=== PATIENT | male | born 1990 | race Caucasian/White ===

== ENCOUNTER 2017-03-08 18:35 | Emergency (ER) | payer OTHER ==
[2017-03-08 18:39] VITALS: Ht 200.7 cm
--- NOTE | 2017-03-08 19:08 | EMERGENCY ROOM VISIT NOTE ---
History Report prepared by Juliano: Wilmer Arita Under the Supervision of: Dr. Tatyana Coyle D.O. First contact with patient: 18:46 Chief Complaint: FEVER Stated Complaint: FEVER,SWEATING, RED AROUND LWR LEG History of Present Illness The patient is a 26 year old male who presents to the Emergency Room with complaints of intermittent fever like symptoms that began yesterday. He rates his discomfort as a 4/10 in severity. The patient states that he started to experience dizziness when he went to take a shower yesterday. He states that he started to experience chills, shivering, and a near syncopal episode. The patient states that following his shower, he was shivering for 3 hours in all of his extremities. He reports that he went to sit on the couch and relax and was able to return to baseline. He states that he woke up in the middle of the night due to his chills returning, but took a shower and was able to go back to bed. The patient states that he went to take a shower this morning and felt a cold sensation on his lower left extremity. He states that he noticed erythema to his lower left extremity region. The patient states that he relaxed all day, but admits that he was still experiencing chills, diaphoresis, and erythema and pain to his lower left extremity. He states that he visited [facility] when they sent him to the ED. The patient admits to a history of MRSA in his heels, IBS, obesity, and borderline thyroid problems. He admits that he has a family history of lupus and diabetes, but denies any personal immune disorders or diabetes. The patient denies bug bites, any other redness, diabetes history, and immune disease. No recent trauma to LE. Source of History: patient Onset: yesterday Position: other (global) Symptom Intensity: 4/10 Timing: intermittent Associated Symptoms: + chills, + diaphoresis Review of Systems See HPI for pertinent positives & negatives. A total of 10 systems reviewed and were otherwise negative. Past Medical & Surgical Medical Problems: (1) Borderline abnormal thyroid function test (2) IBS (irritable bowel syndrome) (3) MRSA (methicillin resistant staph aureus) culture positive (4) Obesity Family History Diabetes mellitus FH: lupus Social History Smoking Status: Never Smoker Current/Historical Medications Scheduled Doxycycline Monohydrate (Monodox), 100 MG PO BID Allergies Uncoded Allergies: SULFA/BACTRIM (Allergy, Intermediate, hyper/ blisters, 03/08/17) Physical Exam Vital Signs Date Time Temp Pulse Resp B/P (MAP) Pulse Ox O2 Delivery O2 Flow Rate FiO2 03/08/17 21:32 36.9 110 20 151/99 96 03/08/17 21:00 151/99 03/08/17 20:58 110 151/103 96 Room Air 03/08/17 18:39 36.9 103 20 166/98 97 Room Air Physical Exam GENERAL: Obese, alert, well appearing, well nourished, no distress, non-toxic EYE EXAM: normal conjunctiva, PERRL and EOM's grossly intact OROPHARYNX: no exudate, no erythema, lips, buccal mucosa, and tongue normal and mucous membranes are moist NECK: supple, no nuchal rigidity, no adenopathy, non-tender LUNGS: Clear to auscultation. Normal chest wall mechanics HEART: no murmurs, S1 normal and S2 normal ABDOMEN: abdomen soft, non-tender, normo-active bowel sounds, no masses, no rebound or guarding. BACK: Back is symmetrical on inspection and there is no deformity, no midline tenderness, no CVA tenderness. SKIN: no rashes and no bruising UPPER EXTREMITIES: upper extremities are grossly normal. LOWER EXTREMITIES: No pitting edema. Distal left lower extremity erythema, no increased warmth, ecchymosis, trauma, or insect bite. NEURO EXAM: Normal sensorium, cranial nerves II-XII grossly intact, normal speech, no gross weakness of arms, no gross weakness of legs. No drift. Finger to nose intact. Gross sensation intact. Medical Decision & Procedures ER Provider Diagnostic Interpretation: Radiology results have been interpreted by the radiologist and reviewed by me. LEFT VENOUS DOPP LOWER EXT UNILAT CLINICAL HISTORY: erythema/edema pain. Edema. TECHNIQUE: Venous Doppler COMPARISON STUDY: None FINDINGS: Normal study IMPRESSION: Normal study The above report was generated using voice recognition software. It may contain grammatical, syntax or spelling errors. Electronically signed by: Spencer Piper M.D. 03/08/2017 8:29 PM Dictated Date/Time: 03/08/2017 8:29 PM Laboratory Results 03/08/17 19:44 Red Blood Count 5.25, Mean Corpuscular Volume 89.7, Mean Corpuscular Hemoglobin 31.8, Mean Corpuscular Hemoglobin Concent 35.5, Mean Platelet Volume 10.4, Neutrophils (%) (Auto) 72.0, Lymphocytes (%) (Auto) 17.9, Monocytes (%) (Auto) 8.8, Eosinophils (%) (Auto) 0.8, Basophils (%) (Auto) 0.3, Neutrophils # (Auto) 7.37, Lymphocytes # (Auto) 1.83, Monocytes # (Auto) 0.90, Eosinophils # (Auto) 0.08, Basophils # (Auto) 0.03 03/08/17 19:44 Test 03/08/17 19:44 White Blood Count 10.23 K/uL (4.8-10.8) Red Blood Count 5.25 M/uL (4.7-6.1) Hemoglobin 16.7 g/dL (14.0-18.0) Hematocrit 47.1 % (42-52) Mean Corpuscular Volume 89.7 fL (80-100) Mean Corpuscular Hemoglobin 31.8 pg (25-34) Mean Corpuscular Hemoglobin Concent 35.5 g/dl (32-36) Platelet Count 195 K/uL (130-400) Mean Platelet Volume 10.4 fL (7.4-10.4) Neutrophils (%) (Auto) 72.0 % Lymphocytes (%) (Auto) 17.9 % Monocytes (%) (Auto) 8.8 % Eosinophils (%) (Auto) 0.8 % Basophils (%) (Auto) 0.3 % Neutrophils # (Auto) 7.37 K/uL (1.4-6.5) Lymphocytes # (Auto) 1.83 K/uL (1.2-3.4) Monocytes # (Auto) 0.90 K/uL (0.11-0.59) Eosinophils # (Auto) 0.08 K/uL (0-0.5) Basophils # (Auto) 0.03 K/uL (0-0.2) RDW Standard Deviation 40.6 fL (36.4-46.3) RDW Coefficient of Variation 12.4 % (11.5-14.5) Immature Granulocyte % (Auto) 0.2 % Immature Granulocyte # (Auto) 0.02 K/uL (0.00-0.02) Anion Gap 5.0 mmol/L (3-11) Estimated GFR () 96.8 Estimated GFR (Non- 83.5 BUN/Creatinine Ratio 10.1 (10-20) Calcium Level 8.9 mg/dl (8.5-10.1) Laboratory results per my review. Medications Administered Medications (Trade) Dose Ordered Sig/Estuardo Route Start Time Stop Time Status Last Admin Dose Admin Cephalexin Monohydrate (Keflex Cap) 500 mg NOW ONCE PO 03/08/17 20:45 03/08/17 20:46 DC 03/08/17 21:01 500 MG Doxycycline Hyclate (Vibramycin Cap) 100 mg ONE ONCE PO 03/08/17 21:15 03/08/17 21:16 DC 03/08/17 21:15 100 MG ED Course 1854: The patient was evaluated in room B08. A complete history and physical exam was performed. 2031: Trimethoprim/ Sulfamethoxazole 1 tab PO. 2044: Keflex Cap 500 mg PO. 2102: Upon reevaluation, the patient is feeling better. I discussed the findings and the treatment plan with the patient. He verbalizes agreement and understanding. The patient was discharged home. 2114: Vibramycin Cap 100 mg PO. Medical Decision The differential diagnosis includes but is not limited to: Etiologies such as cellulitis, abscess, MRSA infection, DVT, necrotizing fasciitis, dermatitis, drug eruption, as well as others were entertained. Pt aware of all results, likely cellulitis, doppler negative. When given antibiotics in ED, states then that has sulfa allergy so changed to doxycycline. Cultures sent as a precaution given systemic symptoms, no evidence of bacteremia/sepsis on Ed evaluation. Pt with hx of MRSA. Discussed with him close f/u, states he has no PCP and so advised to return to the ED for recheck within 48 hours. Discussed sx to watch/return for more emergently. He verbalized understanding of this and was agreeable with plan. Medication Reconcilliation Current Medication List: was personally reviewed by me Blood Pressure Screening Patient's blood pressure: Elevated blood pressure Blood pressure disposition: Referred to PCP Impression Primary Impression: Cellulitis Scribe Attestation The scribe's documentation has been prepared under my direction and personally reviewed by me in its entirety. I confirm that the note above accurately reflects all work, treatment, procedures, and medical decision making performed by me. Departure Information Dispostion Home / Self-Care Prescriptions Doxycycline Monohydrate (Monodox) 100 Mg Cap 100 MG PO BID for 7 Days, #14 CAP Prov: Mary Bethraphael Tatyana S., 03/08/17 Forms HOME CARE DOCUMENTATION FORM, IMPORTANT VISIT INFORMATION Patient Instructions My [facility] Additional Instructions Please take the antibiotics as prescribed. Please return here for a recheck Saturday. If you are feeling worse, develop increased redness/warmth/ swelling of the lower leg, develop blisters/oozing, fevers/chills, vomiting, dizziness, or you have any other new or concerning symptoms, please return to the emergency room. Problem Qualifiers Primary Impression: Cellulitis Site of cellulitis: extremity Site of cellulitis of extremity: lower extremity Laterality: left Qualified Codes: L03.116 - Cellulitis of left lower limb
[2017-03-08 20:13] LABS: BASO % 0.3 %; BASO ABS # 0.03 K/uL (0-0.2); COMPLETE YES; EOS % 0.8 %; HEMATOCRIT 47.1 % (42-52); IG% 0.2 %; LYMPH % 17.9 %; LYMPH ABS # 1.83 K/uL (1.2-3.4); MEAN CELL VOLUME 89.7 fL (80-100); MEAN CORPUSCULAR HEMOGLOBIN 31.8 pg (25-34); MEAN CORPUSCULAR HGB CONC 35.5 g/dl (32-36); MEAN PLATELET VOLUME 10.4 fL (7.4-10.4); MONO % 8.8 %; PLATELET COUNT 195 K/uL (130-400); RED BLOOD COUNT 5.25 M/uL (4.7-6.1); WHITE BLOOD COUNT 10.23 K/uL (4.8-10.8)
--- NOTE | 2017-03-08 20:30 | DIAGNOSTIC IMAGING REPORT ---
LEFT VENOUS DOPP LOWER EXT UNILAT CLINICAL HISTORY: erythema/edema pain. Edema. TECHNIQUE: Venous Doppler COMPARISON STUDY: None FINDINGS: Normal study IMPRESSION: Normal study The above report was generated using voice recognition software. It may contain grammatical, syntax or spelling errors. Electronically signed by: Spencer Piper M.D. 03/08/2017 8:29 PM Dictated Date/Time: 03/08/2017 8:29 PM
[2017-03-08] MEDS: SULFAMETHOXAZOLE/TRIMETHOPRIM DS 800/160MG TAB PO STA ×2 (20:32→21:00)
[2017-03-08 20:35] LABS: BLOOD UREA NITROGEN 12 mg/dl (7-18); BUN/CREATININE RATIO 10.1 (10-20); CALCIUM 8.9 mg/dl (8.5-10.1); CARBON DIOXIDE 24 mmol/L (21-32); CHLORIDE 108 mmol/L (98-107); GLUCOSE 87 mg/dl (70-99); POTASSIUM 3.9 mmol/L (3.5-5.1); SODIUM 137 mmol/L (136-145)
[2017-03-08] MEDS ORDERED: CEPHALEXIN MONOHYDRATE 250 MG CAP PO ONE (20:45)
[2017-03-08] MEDS ORDERED: DOXY100C76 PO (21:11)
[2017-03-08] MEDS ORDERED: DOXYCYCLINE HYCLATE 100 MG CAP PO ONE (21:15)
[2017-03-08 21:32] VITALS: BP 151/99; PULSE 110; TEMP 36.9; O2SAT 96
== END 2017-03-08 21:33 | disposition home or self-care (01) ==
LOC: C.EDB 18:40
DX: L03.116 Cellulitis of left lower limb (principal); K58.9 Irritable bowel syndrome, unspecified; Z86.14 Personal history of Methicillin resistant Staphylococcus aureus infection; E66.9 Obesity, unspecified; E07.9 Disorder of thyroid, unspecified; Z83.3 Family history of diabetes mellitus

== ENCOUNTER 2017-03-11 14:04 | Emergency (ER) | payer OTHER ==
[~2017-03-11 14:04] MED LIST: DOXY100C76 PO
[2017-03-11 14:22] VITALS: TEMP 36.7; Ht 200.7 cm
--- NOTE | 2017-03-11 14:52 | EMERGENCY ROOM VISIT NOTE ---
ED Visit Note First contact with patient: 14:37 CHIEF COMPLAINT: Recheck left lower extremity cellulitis History of present illness: Patient is a 26-year-old white male who returns to the emergency department as advised for recheck of a cellulitis involving the left lower leg. He was seen and evaluated here 3 days ago. He has negative venous Doppler of the left lower extremity at that time. He was placed on doxycycline. He has been taking the doxycycline as prescribed. He reports his symptoms have much improved. The affected area is much smaller, less warm and less red. He has not had a fever in greater than 24 hours. He reports less pain. He notes some persistent swelling in the dorsum of the foot. Generally he feels much better than he did a couple of days ago. He feels a little bit nauseous but attributes this to the antibiotic. REVIEW OF SYSTEMS: Review of systems as per HPI. All other systems reviewed were negative. At least 6 systems reviewed. PMH: Electronic medical records are reviewed and summarized as above/below. See Problem List. SOCIAL HISTORY: Patient lives at home. Nonsmoker. PHYSICAL EXAM: Vital Signs: Reviewed Nurse's notes. MENTAL STATUS: Morbidly obese 26-year-old white male who is awake and alert and seated on the gurney in no acute distress. INTEGUMENTARY: Examination of the anterior left lower leg show a small area of erythema, increased warmth and induration over the medial malleolus. There is no lymphangitic streaking. No fluctuance or pointing. There is 2+ pitting edema in the dorsum of the foot. Knee and ankle range of motion are full. The left lower extremity is neurovascularly intact. The redness is decreased compared to yesterday according to the patient. EMERGENCY DEPARTMENT COURSE: The patient was seen and assessed as above. His old records are reviewed. Clinically the patient appears to be responding appropriately to the doxycycline. He has some faint residual erythema and pitting edema which is to be expected, given the infection in addition to his body habitus. He was encouraged to elevate the leg as much as possible for swelling, and was reassured that his symptoms would continue until improve as he finishes his antibiotics. He reports he does not have a PCP, therefore if his symptoms worsen, he was advised to return to the emergency department immediately. Medication reconciliation: I attest that I have personally reviewed the patient' s current medication list. Blood pressure screening : Patient was found to have normal blood pressure on screening and does not require follow-up. Problem List Medical Problems: (1) Asthma Status: Chronic (2) Borderline abnormal thyroid function test Status: Chronic (3) Cellulitis Status: Resolved (4) Depression Status: Chronic (5) Hypertension Status: Chronic (6) IBS (irritable bowel syndrome) Status: Chronic (7) MRSA (methicillin resistant staph aureus) culture positive Status: Chronic (8) Obesity Status: Chronic Current/Historical Medications Scheduled Doxycycline Monohydrate (Monodox), 100 MG PO BID Allergies Coded Allergies: Sulfa Antibiotics (Unverified Allergy, Unknown, ANAPHYLAXIS, 03/11/17) Uncoded Allergies: SULFA/BACTRIM (Allergy, Intermediate, hyper/ blisters, 03/08/17) Vital Signs Date Time Temp Pulse Resp B/P (MAP) Pulse Ox O2 Delivery O2 Flow Rate FiO2 03/11/17 14:55 80 20 108/81 96 Room Air 03/11/17 14:22 36.7 84 20 97 Room Air Departure Information Impression Primary Impression: Cellulitis Additional Impression: Encounter for wound re-check Referrals No Doctor, Assigned (PCP) Patient Instructions My [facility] Additional Instructions Finish the doxycycline as previously prescribed. Ibuprofen(Motrin, Advil) may be used for fever or pain. Use 600mg every six hours as needed. Take with food. Avoid using more than 2400mg in a 24 hour period. Do not use 2400mg per day for more than three consecutive days without physician direction. Prolonged inappropriate use can lead to stomach upset or ulcers. (AND/OR) Acetaminophen(Tylenol) may be used for fever or pain. Use 1000mg every six hours as needed. Avoid using more than 3000mg in a 24 hour period. Warm compresses to the affected area 4 times daily for 15-20 minutes. Elevate the leg as much as possible for swelling and pain. Rest and drink plenty of fluids. Continue current medications. Return to the ER for severe pain, persistent fevers, spreading redness, or any worsening of your condition. Follow up with your primary physician within 2-3 days for a recheck of the current condition. Problem Qualifiers
[2017-03-11 14:55] VITALS: BP 108/81; PULSE 80; O2SAT 96
== END 2017-03-11 15:16 | disposition home or self-care (01) ==
LOC: C.EDB 14:06 → C.EDD 15:16
DX: L03.116 Cellulitis of left lower limb (principal); J45.909 Unspecified asthma, uncomplicated; F32.9 Major depressive disorder, single episode, unspecified; I10 Essential (primary) hypertension; K58.9 Irritable bowel syndrome, unspecified; E66.9 Obesity, unspecified

== ENCOUNTER 2017-03-28 19:51 | Emergency (ER) | payer OTHER ==
[~2017-03-28] VITALS: Ht 200.7 cm; Wt 160.3 kg
[2017-03-28 19:53] VITALS: TEMP 36.7; Ht 200.7 cm; Wt 160.3 kg
[2017-03-28] MEDS ORDERED: DIPH1TAB PO (20:37)
[2017-03-28] MEDS ORDERED: SODIUM CHLORIDE 0.9% 1000ML 1,000 ML IV STA (21:10)
--- NOTE | 2017-03-28 21:51 | EMERGENCY ROOM VISIT NOTE ---
History First contact with patient: 20:51 Chief Complaint: WOUND INFECTION Stated Complaint: CELLULITIS,FEET TURNING TEJADA History of Present Illness The patient is a 26 year old male who presents to the Emergency Room with complaints of left leg redness and swelling that started about one week ago. Patient states approximately 3 weeks ago he was treated for cellulitis in this leg, took doxycycline twice a day for 7 days. He states that initially the leg seemed to get better, but about a week ago he felt that the redness started to come back. He went to a walk-in clinic for evaluation today, and states his feet were turning purple and "corpse nichols" and "they were uncomfortable treating me there because they did not have a Doppler machine." Patient denies any fevers, chills, pain in the leg, recent travel or injury, or history of DVT. Patient states he gets a fair amount of swelling in both legs by the end of the day after being on his feet for a long time, which he attributes to being morbidly obese. He states that the swelling is not a new problem and has been going on for years. He does state that the swelling in his legs goes down by the next morning after being elevated. He denies any fevers, chills, chest pain, shortness of breath, palpitations, dizziness or syncope, abdominal pain, back pain, urinary symptoms, rash. Patient also states that he has not been drinking as much as normal past few days and feels like he is dehydrated, requesting IV fluids. Review of Systems A complete 10 point review of systems was reviewed with the patient with pertinent positives and negatives as per history of present illness. All else were negative. Past Medical/Surgical History Medical Problems: (1) Asthma (2) Borderline abnormal thyroid function test (3) Cellulitis (4) Depression (5) Hypertension (6) IBS (irritable bowel syndrome) (7) MRSA (methicillin resistant staph aureus) culture positive (8) Obesity Family History Diabetes mellitus FH: lupus Social History Smoking Status: Never Smoker Current/Historical Medications Scheduled PRN Diphenhydramine Hcl (Benadryl Allergy), 25 MG PO UD PRN for ALLERGIC REACTION Physical Exam Vital Signs Date Time Temp Pulse Resp B/P (MAP) Pulse Ox O2 Delivery O2 Flow Rate FiO2 03/28/17 23:55 141/93 03/28/17 23:08 73 18 131/83 99 Room Air 03/28/17 19:53 36.7 93 18 135/108 99 Room Air Physical Exam CONSTITUTIONAL: No acute distress. Well appearing and well nourished. Alert and oriented X 4 with normal affect. HEENT: Normocephalic, atraumatic. Pupils equal, round and reactive to light, EOMI. TMs normal. Pharynx normal. Tacky mucous membranes. NECK: Supple, full active range of motion without discomfort. RESPIRATORY: Clear to auscultation bilaterally with no wheezing, crackles, rhonchi or stridor. Equal expansion bilaterally. CARDIOVASCULAR: Regular rate and rhythm with no murmurs, rubs or gallops. Bilateral 2+ pitting edema of the feet and ankles. 2+ DP and PT pulses of both feet. Lower extremities are purplish red color when dependent, return to a normal pink color with elevation. GASTROINTESTINAL: Soft, nontender, nondistended. Morbidly obese. Bowel sounds present in all quadrants. MUSCULOSKELETAL: Full range of motion of all joints without discomfort. INTEGUMENTARY: No rash or other significant dermatologic conditions noted. NEUROLOGIC: Cranial nerves II-XII grossly intact. No focal neurologic deficits noted. Medical Decision & Procedures ER Provider Diagnostic Interpretation: LEFT VENOUS DOPP LOWER EXT UNILAT CLINICAL HISTORY: 26 years-old Male presenting with EVALUATE FOR DVT. TECHNIQUE: Real-time grayscale and color and spectral Doppler ultrasound imaging of the veins of the left lower extremity was performed. Compression and augmentation were also utilized. COMPARISON: 03/08/2017. FINDINGS: Left: Common femoral vein: Patent. Femoral vein: Patent. Greater saphenous vein: Patent. Popliteal vein: Patent. Calf veins: Limited visualization. Other: None. IMPRESSION: No evidence of deep venous thrombosis. Laboratory Results 03/28/17 22:00 Red Blood Count 5.21, Mean Corpuscular Volume 90.0, Mean Corpuscular Hemoglobin 31.9, Mean Corpuscular Hemoglobin Concent 35.4, Mean Platelet Volume 9.9, Neutrophils (%) (Auto) 59.1, Lymphocytes (%) (Auto) 30.5, Monocytes (%) (Auto) 7.2, Eosinophils (%) (Auto) 2.5, Basophils (%) (Auto) 0.4, Neutrophils # (Auto) 4.55, Lymphocytes # (Auto) 2.34, Monocytes # (Auto) 0.55, Eosinophils # (Auto) 0.19, Basophils # (Auto) 0.03 03/28/17 22:00 Test 03/28/17 22:00 White Blood Count 7.68 K/uL (4.8-10.8) Red Blood Count 5.21 M/uL (4.7-6.1) Hemoglobin 16.6 g/dL (14.0-18.0) Hematocrit 46.9 % (42-52) Mean Corpuscular Volume 90.0 fL (80-100) Mean Corpuscular Hemoglobin 31.9 pg (25-34) Mean Corpuscular Hemoglobin Concent 35.4 g/dl (32-36) Platelet Count 254 K/uL (130-400) Mean Platelet Volume 9.9 fL (7.4-10.4) Neutrophils (%) (Auto) 59.1 % Lymphocytes (%) (Auto) 30.5 % Monocytes (%) (Auto) 7.2 % Eosinophils (%) (Auto) 2.5 % Basophils (%) (Auto) 0.4 % Neutrophils # (Auto) 4.55 K/uL (1.4-6.5) Lymphocytes # (Auto) 2.34 K/uL (1.2-3.4) Monocytes # (Auto) 0.55 K/uL (0.11-0.59) Eosinophils # (Auto) 0.19 K/uL (0-0.5) Basophils # (Auto) 0.03 K/uL (0-0.2) RDW Standard Deviation 40.6 fL (36.4-46.3) RDW Coefficient of Variation 12.3 % (11.5-14.5) Immature Granulocyte % (Auto) 0.3 % Immature Granulocyte # (Auto) 0.02 K/uL (0.00-0.02) Prothrombin Time 10.9 SECONDS (9.0-12.0) Prothromb Time International Ratio 1.0 (0.9-1.1) Activated Partial Thromboplast Time 27.8 SECONDS (21.0-31.0) Partial Thromboplastin Ratio 1.1 Anion Gap 4.0 mmol/L (3-11) Est Creatinine Clear Calc Drug Dose 194.2 ml/min Estimated GFR () 122.2 Estimated GFR (Non- 105.4 BUN/Creatinine Ratio 12.4 (10-20) Calcium Level 9.2 mg/dl (8.5-10.1) Total Bilirubin 0.5 mg/dl (0.2-1) Aspartate Amino Transf (AST/SGOT) 18 U/L (15-37) Alanine Aminotransferase (ALT/SGPT) 36 U/L (12-78) Alkaline Phosphatase 61 U/L (45-117) Total Protein 7.6 gm/dl (6.4-8.2) Albumin 3.6 gm/dl (3.4-5.0) Globulin 4.0 gm/dl (2.5-4.0) Albumin/Globulin Ratio 0.9 (0.9-2) Medications Administered Medications (Trade) Dose Ordered Sig/Estuardo Route Start Time Stop Time Status Last Admin Dose Admin Sodium Chloride 1,000 ml @ 999 mls/hr Q1H1M STAT IV 03/28/17 21:10 03/28/17 22:10 DC 03/28/17 22:04 999 MLS/HR Medical Decision CC: Patient presenting with complaint of left leg swelling and redness Interpretation of Labs: No leukocytosis, no anemia, no significantly delayed abnormalities, normal renal function, normal liver enzymes. Differential Diagnosis: Includes, but not limited to cellulitis, DVT, lymphedema , fluid overload, dehydration, among others. Medication Reconciliation: I attest that I have personally reviewed the patient' s current medication list. Vital signs review: I reviewed the patient's vital signs and interpret them as follows: T: Afebrile; BP: Hypertensive; HR: Within normal limits; RR: Within normal limits; Pulse Ox: Within normal limits on room air. Blood pressure screening: The patient was found to have an elevated blood pressure and was referred to their primary doctor for recheck and further treatment. Summary: Patient was evaluated at bedside, history of physical exam performed. Patient is alert and in no acute distress, resting comfortably on the stretcher. While the patient is sitting on the edge of the stretcher with his legs dependent, both of his lower extremities are noted to be a purplish-red color, however when he elevates his legs onto the stretcher, they immediately return to a pink color with normal cap refill, 2+ palpable DP and PT pulses, normal sensation, warm to the touch. There is no discernible erythema, heat, or increased swelling of the left leg compared to the right. Patient states he is mostly concerned about cellulitis returning, or a blood clot. Orders were placed at bedside for labs, IV fluids for hydration, venous duplex of the left lower extremity to evaluate for DVT. Patient discussed with Dr. March, who agrees with my assessment and plan. Labs reviewed as above, within normal limits and no acute abnormalities. Duplex study is negative for DVT. I suspect patient's symptoms are largely related to his weight, and particularly his bilateral lower extremity swelling seems to be attributed to long hours on his feet, as he reports this goes down after elevating the legs. I do not suspect cellulitis at this time based on my exam. I did encourage the patient to try compression stockings when he is on his feet to help reduce the swelling, perform daily leg exercises and stretches, and to continue in his efforts towards weight loss. Patient reassessed multiple times throughout ED stay, he remained stable with no complaints, and was reassured by his negative workup. He also states that he felt better after the IV fluids, stating "I feel like I have more energy now. " I did encourage the patient to get established with a PCP and follow-up if his symptoms persist, as well as gave him strict return precautions should his symptoms worsen. He verbalized understanding. Patient was discharged home in stable condition and ambulatory. Impression Primary Impression: Bilateral lower extremity edema Departure Information Dispostion Home / Self-Care Condition GOOD Referrals No Doctor, Assigned (PCP) Patient Instructions ED Leg Swelling Bilateral, My [facility] Additional Instructions Stay off of the legs as much as possible and keep them elevated. You may also try wearing compression stockings during the day to help reduce swelling. Apply heat to the swollen area frequently over the next 2 days to help reduce swelling.. Ibuprofen, 600 mg every 6 hours if needed for pain. Follow-up with your own doctor in the next week if your symptoms are not resolved. Please return to the emergency department for worsening symptoms, including worsening pain, increased swelling, increased redness, fever/chills, open/ draining sores on the leg, or any other concerns.
[2017-03-28 22:16] LABS: BASO % 0.4 %; BASO ABS # 0.03 K/uL (0-0.2); COMPLETE YES; EOS % 2.5 %; HEMATOCRIT 46.9 % (42-52); IG% 0.3 %; LYMPH % 30.5 %; LYMPH ABS # 2.34 K/uL (1.2-3.4); MEAN CORPUSCULAR HEMOGLOBIN 31.9 pg (25-34); MEAN CORPUSCULAR HGB CONC 35.4 g/dl (32-36); MEAN PLATELET VOLUME 9.9 fL (7.4-10.4); MONO % 7.2 %; NEUT % 59.1 %; PLATELET COUNT 254 K/uL (130-400); RED BLOOD COUNT 5.21 M/uL (4.7-6.1); WHITE BLOOD COUNT 7.68 K/uL (4.8-10.8)
[2017-03-28 22:25] LABS: BUN/CREATININE RATIO 12.4 (10-20); CALCIUM 9.2 mg/dl (8.5-10.1); CREATININE 0.99 mg/dl (0.60-1.40)
[2017-03-28 22:28] LABS: ALB/GLOB RATIO 0.9 (0.9-2); PARTIAL THROMBOPLASTIN RATIO 1.1; PROTHROMBIN TIME (PATIENT) 10.9 SECONDS (9.0-12.0)
--- NOTE | 2017-03-28 23:01 | DIAGNOSTIC IMAGING REPORT ---
LEFT VENOUS DOPP LOWER EXT UNILAT CLINICAL HISTORY: 26 years-old Male presenting with EVALUATE FOR DVT. TECHNIQUE: Real-time grayscale and color and spectral Doppler ultrasound imaging of the veins of the left lower extremity was performed. Compression and augmentation were also utilized. COMPARISON: 03/08/2017. FINDINGS: Left: Common femoral vein: Patent. Femoral vein: Patent. Greater saphenous vein: Patent. Popliteal vein: Patent. Calf veins: Limited visualization. Other: None. IMPRESSION: No evidence of deep venous thrombosis. Electronically signed by: Mazin Coburn M.D. 03/28/2017 10:59 PM Dictated Date/Time: 03/28/2017 10:58 PM
[2017-03-28 23:08] VITALS: PULSE 73; O2SAT 99
[2017-03-28 23:55] VITALS: BP 141/93
== END 2017-03-28 23:48 | disposition home or self-care (01) ==
LOC: C.EDB 19:52 → C.EDC 23:48
DX: R60.9 Edema, unspecified (principal); I10 Essential (primary) hypertension; J45.909 Unspecified asthma, uncomplicated; F32.9 Major depressive disorder, single episode, unspecified; K58.9 Irritable bowel syndrome, unspecified; Z86.19 Personal history of other infectious and parasitic diseases; Z86.14 Personal history of Methicillin resistant Staphylococcus aureus infection; Z83.3 Family history of diabetes mellitus